=== PATIENT | male | born 1940 | race Caucasian/White ===

== ENCOUNTER → 2018-03-13 08:19 | Outpatient (CLI) | payer MEDICARE ==
--- NOTE | ~2018-03-13 | EC ---
PATIENT:RACHEL WAGNER DATE OF SERVICE: 03/13/18 SEX: M MEDICAL RECORD: [id number] DATE OF : 40 [facility] AGE OF PATIENT: 77 ADMISSION DATE: 03/13/18 REFERRING PHYSICIAN: INTERPRETING PHYSICIAN: BREE ARENAS MD ECHOCARDIOGRAM REPORT ECHO CHARGES 4 ECHO COMPLETE Date: 03/13 CLINICAL DIAGNOSIS: BRADYCARDIA,ANGINA,EDEMA-LOWER EXT,PALPITATIONS ECHOCARDIOGRAPHIC MEASUREMENTS (adult normal given) AC root (d.<3.7cm) 4.4 cm LV Septum d (<1.2 cm> 1.4 cm Valve Excursion 1.9 cm LV Septum (systole) 1.8 cm Left Atria (s.<4.0cm> 3.8 cm LVPW d(<1.2cm) 1.3 cm RV (d.<2.3cm) 4.4 cm LVPW (sytole) 1.8 cm LV diastole(<5.6CM) 4.7 cm MV E-F(>70mm/sec) cm LV systole 3.0 cm LVOT Diameter 1.8 cm MV exc.(>10mm) 1.5 cm Est.ejection fraction (50-75%) % DOPPLER: LVIT cm/sec A 83.0 cm/sec E 50.0 cm/sec LA cm/sec RVSP 29 mmHg LVOT 99 cm/sec AOP1/2T 626 m/s Asc. Ao 108 cm/sec RVOT 58 cm/sec RA cm/sec PA 109 cm/sec AV Gradient Peak 4.64 mmHg AV Mean 2.25 mmHg AV Area 2.5 cm MV Gradient Peak 2.81 mmHg MV Mean 0.73 mmHg MV Area cm COMMENTS: Production Analyst: 2 GUY OG Metal Pattern Maker: Henry Arenas TAPE# PACS Pericardial Effusion N DATE OF SERVICE: PROCEDURE: Transthoracic echocardiogram. FINDINGS: 1. Left ventricle shows mild left ventricular hypertrophy. Inflow characteristics are consistent with diastolic dysfunction. Ejection fraction is 65%. 2. The left atrium is normal size, normal function. 3. The aortic valve is normal. ECHOCARDIOGRAM REPORT [id number] RACHEL WAGNER 4. The mitral valve has mild mitral annular calcification, but otherwise normal. 5. The tricuspid valve has trace tricuspid regurgitation, normal. 6. The right ventricle is mildly dilated, but normal function. 7. The right atrium is mildly dilated, normal function. 8. The aortic valve shows mild aortic insufficiency, but otherwise normal opening parameters. CONCLUSIONS: This is a normal echocardiogram with evidence of mild hypertensive heart disease. TRANSINT:[id number] Voice Confirmation ID: [id number] DOCUMENT ID: [id number] BREE ARENAS MD at 0741 CC: [id number] DICTATION DATE: 03/14/18 0948 PLANT ANATOMY TEACHER: 03/14/18 1104 DEP CLI 03/13/18 [facility] [address] [place] [address]
[2018-03-13 19:29] LABS: CHOL - HDL RATIO 3.5 ratio (2.3-4.9); LDL-HDL RATIO 2.3 ratio (1.5-3.5); T4 THYROXINE 9.1 ug/dL (4.7-13.3); THYROID STIMULATING HORMONE 1.1 uIU/mL (0.36-3.74)
== END | disposition home or self-care (01) ==
LOC: D.ECHO 08:19
PROVIDERS: Internal Medicine Cardiovascular Disease
DX: R00.1 Bradycardia, unspecified (principal); I20.8 Other forms of angina pectoris; E78.5 Hyperlipidemia, unspecified; I44.0 Atrioventricular block, first degree; R60.0 Localized edema; R42 Dizziness and giddiness; R53.83 Other fatigue; R00.2 Palpitations

== ENCOUNTER → 2018-03-13 15:51 | Outpatient (CLI) | payer MEDICARE | END | disposition home or self-care (01) | LOC: D.LABREF 15:51 | DX: E78.5 Hyperlipidemia, unspecified (principal); R00.2 Palpitations ==

== ENCOUNTER → 2018-05-14 18:21 | Outpatient (CLI) | payer MEDICARE ==
[2018-05-14 19:40] LABS: CHOL - HDL RATIO 2.3 ratio (2.3-4.9); LDL-HDL RATIO 1.1 ratio (1.5-3.5)
== END | disposition home or self-care (01) ==
LOC: D.LABREF 18:21
PROVIDERS: Internal Medicine Cardiovascular Disease
DX: E78.5 Hyperlipidemia, unspecified (principal)

== ENCOUNTER → 2019-09-29 13:02 | Outpatient (CLI) | payer MEDICARE ==
--- NOTE | 2019-10-01 12:59 | EC ---
PATIENT:RACHEL WAGNER DATE OF SERVICE: 09/29/19 SEX: M MEDICAL RECORD: [id number] DATE OF : 40 [facility] AGE OF PATIENT: 78 ADMISSION DATE: 09/29/19 REFERRING PHYSICIAN: INTERPRETING PHYSICIAN: FABIEN OTT MD ECHOCARDIOGRAM REPORT ECHO CHARGES 4 ECHO COMPLETE Date: 09/29/19 CLINICAL DIAGNOSIS: BRADYCARDIA H/O HTN ECHOCARDIOGRAPHIC MEASUREMENTS (adult normal given) AC root (d.<3.7cm) 3.9 cm LV Septum d (<1.2 cm> 1.2 cm Valve Excursion 2.1 cm LV Septum (systole) 1.8 cm Left Atria (s.<4.0cm> 3.2 cm LVPW d(<1.2cm) 1.1 cm RV (d.<2.3cm) 3.0 cm LVPW (sytole) 2.0 cm LV diastole(<5.6CM) 5.7 cm MV E-F(>70mm/sec) cm LV systole 3.0 cm LVOT Diameter 1.9 cm MV exc.(>10mm) cm Est.ejection fraction (50-75%) % DOPPLER: LVIT cm/sec A 70.0 cm/sec E 118 cm/sec LA cm/sec RVSP 16.3 mmHg LVOT 118 cm/sec AOP1/2T m/s Asc. Ao 131 cm/sec RVOT 66.0 cm/sec RA cm/sec PA 74.0 cm/sec AV Gradient Peak 6.9 mmHg AV Mean 3.0 mmHg AV Area 3.7 cm MV Gradient Peak 6.2 mmHg MV Mean 2.1 mmHg MV Area cm COMMENTS: OP - HC Mold Maker: 1 ALIDA LIMONOE Clinical Informatics Physician: 3 Dr. Lee TAPE# PACS Pericardial Effusion N DATE OF SERVICE: Adequate 2D, Color Flow, Spectral Doppler, and M-Mode No LVH. LV internal dimensions are normal. Wall motion is normal. EF is greater than or equal to 55%. Aortic valve with sclerosis without stenosis by Doppler interrogation. Left atrium is normal at 3.2 cm. Mitral valve shows no prolapse. Mild MR. Right-sided chambers are grossly normal. Mild plus TR. TRANSINT:[id number] Voice Confirmation ID: [id number] DOCUMENT ID: [id number] ECHOCARDIOGRAM REPORT [id number] RACHEL WAGNER GREGORY A MD at 1259 CC: [id number] DICTATION DATE: 09/30/19 1443 CONTENT DEVELOPER: 09/30/19 2317 DEP CLI 09/29/19 [place] [id number] [place] [id number]
== END | disposition home or self-care (01) ==
LOC: D.HCCECHO 13:02
PROVIDERS: ATTEND Internal Medicine Interventional Cardiology
DX: I10 Essential (primary) hypertension (principal)